=== PATIENT | female | born 1970 | race Caucasian/White ===

== ENCOUNTER 2016-12-27 23:25 | Emergency (ER) | payer OTHER ==
[~2016-12-27] VITALS: Ht 165.1 cm; Wt 71.8 kg
[~2016-12-27 23:25] MED LIST: AMOXICILLIN500 MG PO; CELEBREX200 MG PO; COUMADIN5 MG PO; EFFEXOR XR150 MG PO; FENTANYL1 EAC4 TD; FLEXERIL10 MG PO; GABAPENTIN300 MG PO; LOVENOX100 MG/1 M SC; NEURONTIN300 MG PO; NOHOMEMEDS; NORCO 5/3251 TABLET PO; PSEUDOEPHEDRINE30 MG PO; TRAMADOL HCL50 MG PO; TYLENOL EXTRA500 MG PO; VICODIN,LORT1 TABLET; [UNRECOGNIZED DRUG - REMARK]; muscle relaxer PO
[2016-12-28 00:22] LABS: HEMATOCRIT 44.2 % (36.0-46.0); MCH 30.6 PG (29.0-34.0); MCHC 33.5 G/DL (30.0-36.0); MCV 91.3 FL (83-99); MEAN PLAT.VOLUME 9.6 uM^3 (9.5-12.4); PLATELET COUNT 320 K/uL (156-360); RBC DIS.WIDTH-CV 12.4 % (11.8-14.6); RBC DIS.WIDTH-SD 41.1 % (39-53); RED BLOOD COUNT 4.84 M/uL (3.80-5.20); WHITE BLOOD COUNT 7.6 K/uL (4.1-10.2)
[2016-12-28 00:33] LABS: CHLORIDE 105 mEq/L (99-109); POTASSIUM 3.8 mEq/L (3.7-5.4); SODIUM 144 mEq/L (136-147)
[2016-12-28 00:35] LABS: GLUCOSE 115 mg/dL (70-99)
[2016-12-28 00:37] LABS: ANION GAP 11 MEQ/L (2-14); TOTAL BILIRUBIN 0.9 mg/dL (0.0-1.0)
[2016-12-28 00:39] LABS: ALKALINE PHOSPHATASE 79 IU/L (3-129); GFR ESTIMATE (CALCULATED) > 59 mL/min/
[2016-12-28 00:40] LABS: UREA NITROGEN (BUN) 13 mg/dL (9-23)
[2016-12-28 00:50] LABS: QUANTITATIVE HCG < 4.0 MIU/ML
[2016-12-28 01:11] LABS: LIPASE 13 U/L (1.0-51.0)
[2016-12-28 04:00] LABS: ADD MIUA? NO; BILIRUBIN NEGATIVE; BLOOD NEGATIVE; COLOR YELLOW ((YELLOW)); GLUCOSE (STRIP) NEGATIVE; KETONES NEGATIVE; LEUKOCYTES NEGATIVE; NITRITE NEGATIVE; PROTEIN (STRIP) NEGATIVE; SPECIFIC GRAVITY 1.043 (1.000-1.030); UCUL ADDED? NO; UROBILINOGEN 0.2 MG/DL (0.2-1.0)
[2016-12-28] MEDS ORDERED: ZOFRAN ODT4 MG PO (04:41)
[2016-12-28] MEDS ORDERED: PRILOSEC20 MG PO (04:41)
[2016-12-28 04:57] VITALS: BP 106/71
== END 2016-12-28 04:58 | disposition home or self-care (01) ==
LOC: EME 23:25
DX: K20.9 Esophagitis, unspecified (principal); R11.2 Nausea with vomiting, unspecified; Z85.3 Personal history of malignant neoplasm of breast; Z86.718 Personal history of other venous thrombosis and embolism; Z88.8 Allergy status to other drugs, medicaments and biological substances
CPT/HCPCS: 74177; 80053; 81003; 83690; 84702; 85027; 99281; 99285; C9113; J2405; J7030

== ENCOUNTER 2017-05-11 17:02 | Emergency (ER) | payer OTHER ==
[~2017-05-11] VITALS: Ht 165.1 cm; Wt 77.4 kg
[~2017-05-11 17:02] MED LIST changes: +PRILOSEC20 MG PO; +ZOFRAN ODT4 MG PO
[2017-05-11 17:05] VITALS: BP 134/95
[2017-05-11 19:59] LABS: HEMATOCRIT 36.7 % (36.0-46.0); HEMOGLOBIN 12.8 G/DL (11.9-15.5); MCH 31.1 PG (29.0-34.0); MCHC 34.9 G/DL (30.0-36.0); MCV 89.3 FL (83-99); PLATELET COUNT 258 K/uL (156-360); RBC DIS.WIDTH-CV 11.9 % (11.8-14.6); RBC DIS.WIDTH-SD 39.3 % (39-53); RED BLOOD COUNT 4.11 M/uL (3.80-5.20); WHITE BLOOD COUNT 8.4 K/uL (4.1-10.2)
[2017-05-11 20:05] LABS: INTER. NORMALIZED RATIO 0.9
[2017-05-11 20:07] LABS: PTT 25.1 SEC (25-37)
[2017-05-11] MEDS ORDERED: LOVENOX120 MG/0.8 SC (20:25)
[2017-05-11] MEDS ORDERED: COUMADIN5 MG PO (20:25)
[2017-05-11 20:29] LABS: CHLORIDE 105 MEQ/L (99-109); SODIUM 139 MEQ/L (136-147)
[2017-05-11 20:34] LABS: CREATININE 0.9 MG/DL (0.6-1.3); GFR ESTIMATE (CALCULATED) > 59 mL/min/; GLUCOSE 109 mg/dL (70-99); UREA NITROGEN (BUN) 17 mg/dL (9-23)
== END 2017-05-11 21:25 | disposition home or self-care (01) ==
LOC: EME 17:02
PROVIDERS: Emergency Medicine
DX: I82.432 Acute embolism and thrombosis of left popliteal vein (principal); Z86.718 Personal history of other venous thrombosis and embolism; Z88.8 Allergy status to other drugs, medicaments and biological substances; Z85.3 Personal history of malignant neoplasm of breast
CPT/HCPCS: 80048; 85027; 85610; 85730; 93971; 99281; 99284; J1650

== ENCOUNTER 2017-08-21 08:10 | Day surgery (SDC) | payer OTHER ==
[~2017-08-21] VITALS: Ht 165.1 cm; Wt 72.6 kg
[~2017-08-21 08:10] MED LIST changes: +CRESTOR5 MG PO; +LOVENOX120 MG/0.8 SC; +NORCO 7.5/321 TABLET PO; +WELLBUTRIN XL300 MG PO
[2017-08-21 09:16] VITALS: BP 116/77
[2017-08-21] MEDS ORDERED: PERCOCET 5/31 TABLET PO (11:37)
[2017-08-21] MEDS ORDERED: OXYCONTIN10 MG PO (11:37)
[2017-08-21] MEDS ORDERED: PROCTOSOL-HC28.35 GM PR (11:37)
[2017-08-21] MEDS ORDERED: COLACE100 MG PO (11:37)
[2017-08-21 14:25] VITALS: BP 121/82
[2017-08-21 15:30] VITALS: BP 111/66
[2017-08-21 16:12] VITALS: BP 105/64
== END 2017-08-21 16:15 | disposition home or self-care (01) ==
LOC: SDC 08:10
DX: K64.8 Other hemorrhoids (principal); K64.4 Residual hemorrhoidal skin tags; Z85.3 Personal history of malignant neoplasm of breast; K21.9 Gastro-esophageal reflux disease without esophagitis; Z86.718 Personal history of other venous thrombosis and embolism
CPT/HCPCS: 88304; J0131; J1100; J1170; J1200; J2250; J2405; J2710; J3010; J7643; S0074